=== PATIENT | female | born 1945 | race Caucasian/White ===

== ENCOUNTER → 2018-06-30 10:41 | Outpatient (CLI) | payer MEDICARE, SELFPAY ==
--- NOTE | 2018-06-30 | DI.MRI.S_ITS ---
PROCEDURE: MR HEAD/BRAIN WO/W CON INDICATIONS: ROUTINE SCREENING MAMMOGRAM,DIZZINESS,DIPLOPIA,DYS TECHNIQUE: Noncontrast axial T1 spin echo, axial T2 fast spin echo, sagittal and axial FLAIR, coronal T2 fast spin echo, axial gradient echo, axial diffusion and ADC through the brain. After the administration of contrast, axial and coronal T1 spin echo with fat saturation through the brain. COMPARISON: [facility], CT, HEAD WITHOUT CONTRAST, 09/12/2014, 19:01. FINDINGS: Image quality: Diagnostic, with note made of motion artifact. CSF spaces: Basal cisterns are patent. No extra-axial fluid collections. Ventricles are normal in size and shape. Brain: No midline shift. No intracranial bleeds or masses. No abnormal intracranial enhancement. There is cerebral volume loss for age. There is periventricular white matter chronic small vessel ischemic change. The brainstem appears normal. Diffusion-weighted images demonstrate no acute ischemic insults. No chronic ischemic insults. Normal intravascular flow voids are present. Skull and face: Calvarial marrow is normal in signal. Orbits appear normal. Sinuses: Sinuses and mastoids appear clear. IMPRESSION: Normal brain MRI for age, without an imaging explanation of the patient's presenting history. No masses or abnormal enhancement can be seen. Note is made of age-appropriate brain parenchymal volume loss and chronic small vessel ischemic changes. No findings of acute or subacute infarction can be seen. Dictated by: Miguel Angel Owens M.D. on 06/30/2018 at 11:30 Approved by: Miguel Angel Owens M.D. on 06/30/2018 at 11:31
--- NOTE | 2018-06-30 | DI.US.S_ITS ---
PROCEDURE: US CAROTID DOPPLER BI INDICATIONS: ROUTINE SCREENING MAMMOGRAM,DIZZINESS,DIPLOPIA,DYS TECHNIQUE: Color and pulse Doppler interrogation was performed of both carotid systems, with image documentation and velocity measurements. COMPARISON: None. FINDINGS: Stenosis calculations are based on SRU (Society of Radiologists in Ultrasound) criteria. Right side: Brachial blood pressure: 130/70 mm Hg. Common carotid artery peak systolic velocity: 41 cm/sec. Internal carotid artery peak systolic velocity: 564 cm/sec. Internal carotid artery end diastolic velocity: 245 cm/sec. External carotid artery peak systolic velocity: 109 cm/sec. ICA/CCA peak systolic ratio: 13.6 . Roe scale imaging description: Moderate to severe plaque at the bifurcation. Percent internal carotid artery stenosis: 70% to near occlusion. Vertebral artery: Flow direction is antegrade. Left side: Brachial blood pressure: 132/73 mm Hg. Common carotid artery peak systolic velocity: 94 cm/sec. Internal carotid artery peak systolic velocity: 110 cm/sec. Internal carotid artery end diastolic velocity: 47 cm/sec. External carotid artery peak systolic velocity: 88 cm/sec. ICA/CCA peak systolic ratio: 1.2 . Roe scale imaging description: Mild plaque at the bifurcation Percent internal carotid artery stenosis: Less than 50%. Vertebral artery: Flow direction is antegrade. IMPRESSION: 1. 70% to near occlusion of the right internal carotid artery. 2. Less than 50% stenosis of the left internal carotid artery. Dictated by: Kitty Sosa M.D. on 06/30/2018 at 11:43 Approved by: Kitty Sosa M.D. on 06/30/2018 at 11:59
--- NOTE | 2018-06-30 | DI.MG.S_ITS ---
BILATERAL DIGITAL SCREENING MAMMOGRAM 3D/2D WITH CAD: 06/30/2018 CLINICAL: Routine screening. Comparison is made to exam dated: 06/22/2013 [facility]. The tissue of both breasts is heterogeneously dense. This may lower the sensitivity of mammography. Current study was also evaluated with a Computer Aided Detection (CAD) system. No significant masses, calcifications, or other findings are seen in either breast. There has been no significant interval change. IMPRESSION: NEGATIVE There is no mammographic evidence of malignancy. A 1 year screening mammogram is recommended. This exam was interpreted at Station ID: [id number]. NOTE: For mammograms, a report in lay terms will be sent to the patient. Approximately 15% of breast malignancies will not be visualized mammographically. In the management of a palpable breast mass, a negative mammogram must not discourage biopsy of a clinically suspicious lesion. Electronically Signed By: Anabela massey/jose:06/30/2018 12:42:11 letter sent: Normal Exam ACR BI-RADS Category 1: Negative [id number]
== END ==
PROVIDERS: Visit Provider Family Medicine
DX: Z12.31 Encounter for screening mammogram for malignant neoplasm of breast (principal); R42 Dizziness and giddiness; H53.2 Diplopia; H93.299 Other abnormal auditory perceptions, unspecified ear
CPT/HCPCS: 70553; 77063; 77067; 93880; A9579

== ENCOUNTER → 2020-04-16 14:49 | Outpatient (CLI) | payer MEDICARE, MEDICAID, SELFPAY ==
--- NOTE | 2020-04-16 | DI.MG.S_ITS ---
BILATERAL DIGITAL SCREENING MAMMOGRAM 3D/2D WITH CAD: 04/16/2020 CLINICAL: Routine screening. Comparison is made to exams dated: 06/30/2018 mammogram and 06/22/2013 mammogram - [facility]. The tissue of both breasts is heterogeneously dense. This may lower the sensitivity of mammography. Current study was also evaluated with a Computer Aided Detection (CAD) system. No significant masses, calcifications, or other findings are seen in either breast. There has been no significant interval change. IMPRESSION: NEGATIVE There is no mammographic evidence of malignancy. A 1 year screening mammogram is recommended. This exam was interpreted at Station ID: [id number]. NOTE: For mammograms, a report in lay terms will be sent to the patient. Approximately 15% of breast malignancies will not be visualized mammographically. In the management of a palpable breast mass, a negative mammogram must not discourage biopsy of a clinically suspicious lesion. Electronically Signed By: Primitivo hernandez/jose:04/16/2020 16:28:30 letter sent: Normal Exam ACR BI-RADS Category 1: Negative [id number]
== END ==
PROVIDERS: Family Provider Nurse Practitioner; PCP Family Medicine; Referring Provider Family Medicine; Visit Provider Family Medicine
DX: Z12.31 Encounter for screening mammogram for malignant neoplasm of breast (principal); M85.851 Other specified disorders of bone density and structure, right thigh; Z78.0 Asymptomatic menopausal state; F17.200 Nicotine dependence, unspecified, uncomplicated; Z82.62 Family history of osteoporosis
CPT/HCPCS: 77063; 77067; 77080

== ENCOUNTER → 2021-06-23 12:11 | Outpatient (CLI) | payer MEDICARE, MEDICAID, SELFPAY ==
--- NOTE | 2021-06-23 | DI.RAD.S_ITS ---
PROCEDURE: XR DEXA AXIAL SKELETON INDICATIONS: Age-related osteoporosis without current pathological fractu COMPARISON: [facility], CR, XR DEXA AXIAL SKELETON, 04/16/2020, 15:13. FINDINGS: This blank DEXA report has been sent in error by the PACS system. The correct and complete report will be forthcoming in 1-2 days. Thank you for your patience and understanding. Dictated by: Temitope Alaniz MD, PhD on 06/23/2021 at 16:41 Approved by: Temitope Alaniz MD, PhD on 06/23/2021 at 16:41
== END ==
PROVIDERS: Family Provider Nurse Practitioner; PCP Family Medicine; Referring Provider Family Medicine; Visit Provider Family Medicine
DX: M85.851 Other specified disorders of bone density and structure, right thigh (principal); Z78.0 Asymptomatic menopausal state; Z72.0 Tobacco use; Z82.62 Family history of osteoporosis
CPT/HCPCS: 77080

== ENCOUNTER 2022-02-16 14:22 | Observation (INO) | payer MEDICARE, MEDICAID, SELFPAY ==
[2022-02-16] VITALS (20 sets, daily range): BP systolic 129–203; BP diastolic 56–109; PULSE 56–77; RESP 17–19; TEMP 36.3–36.8; O2SAT 95–99; BMI 20.7
--- NOTE | 2022-02-16 14:44 | DI.CT.S_ITS ---
PROCEDURE: CT HEAD/BRAIN WO CON INDICATIONS: tia TECHNIQUE: Noncontrast 4.5 mm thick angled axial sections acquired from the foramen magnum to the vertex, with coronal and sagittal reformats. For radiation dose reduction, the following was used: automated exposure control, adjustment of mA and/or kV according to patient size. COMPARISON: [facility], CT, HEAD WITHOUT CONTRAST, 09/12/2014, 19:01. FINDINGS: Image quality: Excellent. CSF spaces: Basal cisterns are patent. No extra-axial fluid collections. The ventricles are symmetric in size and shape. Brain: No intracranial bleeds or masses. There is mild cerebral volume loss for age, with resultant ventricular and sulcal prominence. There are mild periventricular and deep white matter chronic small vessel ischemic changes. There is intracranial internal carotid artery atherosclerosis. Skull and face: Calvarium and visualized facial bones appear intact, without suspicious lesions. Sinuses: Visualized sinuses and mastoids are clear. IMPRESSION: 1. No acute intracranial abnormalities. Dictated by: Vincent Conte M.D. on 02/16/2022 at 15:31 Approved by: Vincent Conte M.D. on 02/16/2022 at 15:33
--- NOTE | 2022-02-16 14:44 | DI.RAD.S_ITS ---
PROCEDURE: XR CHEST 1V INDICATIONS: Possible stroke TECHNIQUE: One view of the chest was acquired. COMPARISON: [facility], , CHEST 2 VIEW, 09/12/2014, 19:02. FINDINGS: Surgical changes and devices: None. Lungs and pleura: Lungs are clear. No pleural effusions or pneumothorax. Mediastinum: Mediastinal contours appear normal. Heart size is normal. Bones and chest wall: No suspicious bony lesions. Overlying soft tissues appear unremarkable. IMPRESSION: No acute cardiopulmonary disease. Dictated by: Vincent Conte M.D. on 02/16/2022 at 15:59 Approved by: Vincent Conte M.D. on 02/16/2022 at 16:06
--- NOTE | 2022-02-16 15:09 | PC.NURSE ---
Patient reports that back in June had sudden onset bilateral shoulder pain, L > R and was referred to PT. According to patient, physical therapist was suspicious of sudden onset tendinopathy. 5 weeks ago while laying on the couch, right eye went black in the top 2/3 of eye for 30secs to 2 minutes and resolved on its own. This occured 4 other times with same eye but turned parish instead of black and occurred at both rest and activity. Patient went to eye doctor today and patient stated that she was told this isn't an eye problem and to come to ED for evaluation. Patient is not currently having eye issue.
[2022-02-16 15:19] LABS: INR 0.9 (0.9-1.3)
[2022-02-16 15:22] LABS: PTT Partial Thromboplastin Tim 35 SECONDS (26.4-36.2)
[2022-02-16 15:24] LABS: Alanine Aminotransferase 24 IU/L (<35); Albumin 4.1 g/dL (3.5-5.0); Albumin Globulin Ratio 1.2 (1.0-2.8); Alkaline Phosphatase 66 U/L (38-126); Aspartate Aminotransferase 36 IU/L (14-36); BUN Creatinine Ratio 17.4 (6-22); Bilirubin Total 0.2 mg/dL (0.2-1.3); Blood Urea Nitrogen 12 mg/dL (7-17); Calcium 8.8 mg/dL (8.4-10.2); Carbon Dioxide 28 mmol/L (22-32); Chloride 103 mmol/L (98-107); Creatine Kinase 36 U/L (30-135); Estimated Glomerular Filt Rate > 60 mL/min (>60); Globulin 3.3 g/dL (1.7-4.1); Glucose 95 mg/dL (80-110); HEMOLYSIS 28 (0-50); Magnesium 2.1 mg/dL (1.6-2.3); Potassium 4.4 mmol/L (3.4-5.1); Sodium 138 mmol/L (137-145); Total Protein 7.4 g/dL (6.3-8.2)
[2022-02-16 15:35] LABS: Troponin I < 0.012 ng/mL (0.01-0.034)
[2022-02-16 15:41] LABS: Add Manual Diff / Slide Review SLIDE REVIEW; Basophils Absolute Auto 100 /uL (0-100); Basophils Percent Auto 2.3 % (0-2); Eosinophils Absolute Auto 100 /uL (0-450); Eosinophils Percent Auto 2.3 % (2-4); Hematocrit 25.2 % (36-46); Lymphocytes Absolute Auto 2200 /uL (1100-4500); Mean Corpuscular HGB Conc 55.4 % (30-36); Mean Corpuscular Hemoglobin 68.4 PG (26-34); Mean Corpuscular Volume 123.5 fL (80-100); Monocytes Absolute Auto 400 /uL (0-900); Monocytes Percent Auto 6.1 % (3-14); Neutrophils Absolute Auto 3600 /uL (1500-7000); Neutrophils Percent Auto 55.3 % (50-75); Platelet Count 358 X10^3/uL (150-400); Red Blood Cell Count 2.04 X10^6/uL (4.0-5.2); Red Cell Distribution Width 13.5 % (11.6-14.8); White Blood Cell Count 6.5 X10^3/uL (4.5-11.0)
[2022-02-16 16:20] LABS: Macrocytosis 2+
--- NOTE | 2022-02-16 18:19 | ED_ITS ---
HPI - Eye Problem General Chief complaint: Eye Problems Stated complaint: RT Eye, Black Vision, Blurry Vision, RO Mini Strok Time Seen by Provider: 02/16/22 17:16 Source: patient and family Mode of arrival: Ambulatory History of Present Illness HPI Narrative: 77-year-old female daily smoker with history of hypertension presents for evalua tion of visual disturbances. She states that over the past 5 weeks she has had at least 5 episodes of vision change in her right eye which historically is a loss of vision in the upper 2/3 of her right eye in the absence of pain or injury. She states that maybe she gets dizzy on occasion but denies other neurologic symptoms such as trouble with speech, ambulation or focal numbness, tingling or weakness. 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 She denies fever chills and has no runny nose, sore throat or cough. She has no chest pain or shortness of breath denies nausea, vomiting or diarrhea. She has no change in bowel or urinary habits. Related Data Home Medications Medication Instructions Recorded Confirmed [bee pollen] 1 dose PO DAILY #0 03/08/17 02/16/22 vitamin E 400 unit capsule 400 unit PO QDAY #0 04/12/17 02/16/22 Co Q-10 PO DAILY 02/16/22 Vitamin D3 1 cap PO DAILY 02/16/22 02/16/22 lorazepam 0.5 mg tablet (Ativan) 0.5 mg PO Q6HP PRN 02/16/22 02/16/22 multivitamin with minerals-folic 1 tab PO DAILY 02/16/22 02/16/22 acid 80 mcg chewable tablet Previous Rx's Medication Instructions Recorded cyanocobalamin (vitamin B-12) 1,000 mcg IM SEE INSTRUCTIONS #10 03/08/17 1,000 mcg/mL injection solution ea lisinopril 5 mg tablet 5 mg PO BID #180 tab 04/26/17 simvastatin 10 mg tablet 10 mg PO HS #90 tab 04/26/17 Allergies Allergy/AdvReac Type Severity Reaction Status Date / Time citalopram [CITALOPRAM] Allergy Intermediate HEADACHES Verified 02/16/22 14:48 Sulfa (Sulfonamide Allergy Intermediate A BABY Verified 02/16/22 14:48 Antibiotics) [SULFA (SULFONAMIDE ANTIBIOTICS)] varenicline [VARENICLINE] Allergy Intermediate NAUSEA, Verified 02/16/22 14:48 DIZZINESS YELLOW JACKET VENOM Allergy Severe Difficulty Uncoded 02/16/22 14:48 Breathing OCEAN SPRAY Allergy Intermediate HEADACHES, Uncoded 02/16/22 14:48 COUGHING, SNEEZING, MUSCLE ACHES STRAWBERRIES Allergy Mild RASH, Uncoded 02/16/22 14:48 NAUSEA, DIZZINESS, COUGHING MILK CHOCOLATE AdvReac Mild COUGHING, Uncoded 02/16/22 14:48 SNEEZING Review of Systems Review of Systems Narrative: GENERAL: Denies chills, fatigue, malaise, fever, sweats. HEENT: Denies sinus pain, ear pain, sore throat, difficulty swallowing, dizziness. RESPIRATORY: Denies dyspnea, cough, wheezing, hemoptysis, sputum. CARDIOVASCULAR: Denies chest pain, palpitations, orthopnea, edema, GASTROINTESTINAL: Denies nausea, vomiting, abdominal pain, diarrhea, constipation, melena. : Denies dysuria, frequency, incontinence, hematuria, urinary retention. MUSCULOSKELETAL: denies weakness, joint pain, or bony pain SKIN: Denies rash, skin lesions, or other NEUROLOGIC: See HPI PSYCHIATRIC: No concerning psychosocial issues. 12 point review of systems is negative except for those stated above Patient History Surgical History History of carpal tunnel repair History of tonsillectomy Status post tubal ligation Family History Brother Age: 69 Heart attack Hypertension High cholesterol Child Age: 54 Hypertension High cholesterol Child Age: 51 Hypertension High cholesterol Child Age: 50 Hypertension Hypothyroid Child Age: 48 Hypertension Father Cancer Hypertension Mother Heart disease Mental health problem Stroke Hypothyroid Grandfather Heart disease Hypertension High cholesterol Grandmother Heart disease Sister Age: 79 Heart disease Hypertension High cholesterol Sister Hypertension High cholesterol Social History household members: none Smoking Status: Current every day smoker alcohol intake: current Smoking Status: Current every day smoker alcohol intake frequency: 0-2 drinks per day Substance Use Type: marijuana Exam Narrative Exam Narrative: GENERAL: [77] year old patient appears stated age. Well-developed patient, in mild distress. HEAD: Atraumatic. Normocephalic. EYES: Pupils equal round and reactive. Extraocular motions intact. No scleral icterus. No injection or drainage. ENT: Nose without bleeding, purulent drainage. Throat without erythema, tonsillar hypertrophy or exudate. Airway patent. NECK: Trachea midline. Non tender CARDIOVASCULAR: Regular rate and rhythm without murmurs, gallops, or rubs. RESPIRATORY: Clear to auscultation. Breath sounds equal bilaterally. No wheezes, rales, or rhonchi. GASTROINTESTINAL: Abdomen soft, non-tender, nondistended. EXTREMITIES: No edema or joint tenderness. BACK: Nontender without deformity or crepitance. No flank tenderness. NEURO: AOx3. SKIN: No rash or erythema of visible areas NIH Stroke Scale 1a. LOC: Patient is alert and keenly responsive (0) 1b. LOC Questions: Patient answers both LOC questions accurately (0) 1c. LOC Commands: Patient performs both tasks correctly (0) 2. Best Gaze: Normal (0) 3. Visual: No visual loss (0) 4. Facial palsy: Normal symmetrical movements (0) 5. Motor arm: No drift (0) 6. Motor leg: No drift (0) 7. Limb ataxia: Absent (0) 8. Sensory: Normal (0) 9. Best language: No aphasia; normal (0) 10. Dysarthria: Normal (0) 11. Extinction and inattention: No abnormality (0) NIHSS: 0 Initial Vital Signs Initial Vital Signs: Vital Signs Pulse Rate 66 02/16/22 14:39 Respiratory Rate 18 02/16/22 14:39 Blood Pressure 190/81 H 02/16/22 14:39 Pulse Oximetry 99 02/16/22 14:39 Course Course Course Narrative: #187: Stroke & Stroke Rehabilitation: Thrombolytic Therapy [] The patient, who arrived at the hospital within 2 hours of time last known well, was diagnosed with subacute or acute ischemic stroke. IV t-PA was initiated within 3 hours of time last known well. [SATISFIES MIPS PERFORMANCE] [] The patient was diagnosed with subacute or acute ischemic stroke. IV t-PA was not initiated within 3 hours of last known well due to [select]: [MIPS PERFORMANCE EXCEPTION/EXCLUSION] [x] Patient arrived more than 2 hours after last known well time, or the time last known well is unknown [] Patient has a medical contra-indication or reason for not administering [] (ex. neurologist does not believe t-PA is appropriate, active internal bleeding, serious head trauma, acute current or history of intracranial hemorrhage, uncontrollable hypertension, seizure at onset of stroke, CVA in last 3 months, Intracranial or intraspinal surgery in last 3 months, bleeding disorder, thrombocytopenia < 100,000, early radiographic ischemic changes on head CT, INR > 1.7, intracranial neoplasm, AVM, or aneurysm, patient in stroke trial, patient admitted for elective carotid intervention) []Patient or family declined IV t-PA [] The patient, who arrived at the hospital within 2 hours of time last known well, was diagnosed with subacute or acute ischemic stroke. IV t-PA was not initiated within 3 hours of time last known well. [DOES NOT SATISFY MIPS PERFORMANCE] Orders Ordered: ED Orders 02/16/22 18:35 CT angio head and neck Stat 02/16/22 18:43 COVID19 -Nasal RAPID/Pre-Proc Stat Apixaban (Apixaban 5 Mg Tablet) 5 mg PO BID TIFFANI Aspirin (Aspirin Ec 81 Mg Tablet) 81 mg PO DAILY TIFFANI Atorvastatin Calcium (Atorvastatin 20 Mg Tablet) 40 mg PO BEDTIME TIFFANI Clopidogrel Bisulfate (Clopidogrel 75 Mg Tablet) 75 mg PO DAILY TIFFANI Lisinopril (Lisinopril 5 Mg Tablet) 5 mg PO BID TIFFANI Naloxone HCl (Naloxone 0.4 Mg/Ml Vial) 0.2 mg IV Q2MIN PRN PRN Reason: Opiate Reversal Ondansetron HCl (Ondansetron 4 Mg/2 Ml Inj) 4 mg IV Q6HR PRN PRN Reason: Nausea And Vomiting Discontinued Medications Aspirin (Aspirin 81 Mg Chew Tab) 324 mg PO NOW ONE Stop: 02/16/22 18:37 Last Admin: 02/16/22 18:41 Dose: 324 mg Documented by: HERNAN Atorvastatin Calcium (Atorvastatin 20 Mg Tablet) 10 mg PO BEDTIME TIFFANI Non-Formulary Medication (Simvastatin) 10 mg PO HS REPLACED BY [facility] Vital Signs Vital signs: Vital Signs - 8 hr 02/16/22 16:30 02/16/22 16:31 02/16/22 17:00 Pulse Rate 68 61 61 Blood Pressure 141/63 H 152/69 H Pulse Oximetry 98 98 98 02/16/22 17:30 02/16/22 18:00 02/16/22 18:30 Pulse Rate 62 65 63 Blood Pressure 174/72 H 153/65 H 203/81 H Pulse Oximetry 97 98 95 02/16/22 19:49 02/16/22 20:00 02/16/22 20:30 Pulse Rate 58 L 60 57 L Blood Pressure Pulse Oximetry 99 96 96 02/16/22 21:00 02/16/22 21:30 02/16/22 22:00 Pulse Rate 56 L 59 L 58 L Blood Pressure Pulse Oximetry 98 97 96 MDM - Eye Problem Lab Data Result diagrams: 02/16/22 15:03 02/16/22 15:03 Labs: Lab Results 02/16/22 02/16/22 02/16/22 Range/Units 15:03 15:03 15:03 WBC 6.5 (4.5-11.0) X10^3/uL RBC 2.04 L (4.0-5.2) X10^6/uL Hgb 14.0 (12.0-16.0) g/dL Hct 25.2 L (36-46) % MCV 123.5 H (80-100) fL MCH 68.4 H (26-34) PG MCHC 55.4 H (30-36) % RDW 13.5 (11.6-14.8) % Plt Count 358 (150-400) X10^3/uL Neut % (Auto) 55.3 (50-75) % Lymph % (Auto) 34.0 (25-40) % [place] % (Auto) 6.1 (3-14) % Eos % (Auto) 2.3 (2-4) % Baso % (Auto) 2.3 H (0-2) % Neut # (Auto) 3600 (8850-2267) /uL Lymph # (Auto) 2200 (9670-4379) /uL [place] # (Auto) 400 (0-900) /uL Eos # (Auto) 100 (0-450) /uL Baso # (Auto) 100 (0-100) /uL RBC Morphology See below Macrocytosis 2+ H PT 10.0 L (10.1-12.7) SECONDS INR 0.9 (0.9-1.3) APTT 35 (26.4-36.2) SECONDS Sodium 138 (137-145) mmol/L Potassium 4.4 (3.4-5.1) mmol/L Chloride 103 (98-107) mmol/L Carbon Dioxide 28 (22-32) mmol/L BUN 12 (7-17) mg/dL Creatinine 0.69 (0.52-1.04) mg/dL Estimated GFR > 60 (>60) mL/min BUN/Creatinine Ratio 17.4 (6-22) Glucose 95 (80-110) mg/dL Calcium 8.8 (8.4-10.2) mg/dL Magnesium 2.1 (1.6-2.3) mg/dL Total Bilirubin 0.2 (0.2-1.3) mg/dL AST 36 (14-36) IU/L ALT 24 (<35) IU/L Alkaline Phosphatase 66 (38-126) U/L Total Creatine Kinase 36 (30-135) U/L CK-MB (CK-2) TNP CK-MB (CK-2) Rel Index TNP Troponin I < 0.012 (0.01-0.034) ng/mL Total Protein 7.4 (6.3-8.2) g/dL Albumin 4.1 (3.5-5.0) g/dL Globulin 3.3 (1.7-4.1) g/dL Albumin/Globulin Ratio 1.2 (1.0-2.8) SARS-CoV-2 (PCR) (Negative) 02/16/22 Range/Units 18:43 WBC (4.5-11.0) X10^3/uL RBC (4.0-5.2) X10^6/uL Hgb (12.0-16.0) g/dL Hct (36-46) % MCV (80-100) fL MCH (26-34) PG MCHC (30-36) % RDW (11.6-14.8) % Plt Count (150-400) X10^3/uL Neut % (Auto) (50-75) % Lymph % (Auto) (25-40) % [place] % (Auto) (3-14) % Eos % (Auto) (2-4) % Baso % (Auto) (0-2) % Neut # (Auto) (4154-4244) /uL Lymph # (Auto) (8884-1936) /uL [place] # (Auto) (0-900) /uL Eos # (Auto) (0-450) /uL Baso # (Auto) (0-100) /uL RBC Morphology Macrocytosis PT (10.1-12.7) SECONDS INR (0.9-1.3) APTT (26.4-36.2) SECONDS Sodium (137-145) mmol/L Potassium (3.4-5.1) mmol/L Chloride (98-107) mmol/L Carbon Dioxide (22-32) mmol/L BUN (7-17) mg/dL Creatinine (0.52-1.04) mg/dL Estimated GFR (>60) mL/min BUN/Creatinine Ratio (6-22) Glucose (80-110) mg/dL Calcium (8.4-10.2) mg/dL Magnesium (1.6-2.3) mg/dL Total Bilirubin (0.2-1.3) mg/dL AST (14-36) IU/L ALT (<35) IU/L Alkaline Phosphatase (38-126) U/L Total Creatine Kinase (30-135) U/L CK-MB (CK-2) CK-MB (CK-2) Rel Index Troponin I (0.01-0.034) ng/mL Total Protein (6.3-8.2) g/dL Albumin (3.5-5.0) g/dL Globulin (1.7-4.1) g/dL Albumin/Globulin Ratio (1.0-2.8) SARS-CoV-2 (PCR) Negative (Negative) Imaging Data CT scan - head: Radiologist's Impression: Close Head CT (Signed) Lola Conte - 02/16/22 Chest X-Ray (Signed) Lola Conte - 02/16/22 Bone Densitometry (Signed) Temitope Alaniz - 06/23/21 Mammogram Screening (Signed) Primitivo Espinoza - 04/16/20 Bone Densitometry 04/16/20 Mammogram Screening (Signed) Anabela Rodriguez - 06/30/18 Carotid Doppler Study (Signed) Kitty Sosa - 06/30/18 Brain MRI (Signed) Miguel Angel Owens - 06/30/18 Launch?Image [address] [address] [address] Scan Report Signed Patient: Carina Ryan V MR#: [id number] : 1945 Acct:[id number] Age/Sex: 77 / F Date of Service: 02/16/22 Loc: ED Accession Number: [id number] ?? Procedure: CT head/brain wo con Ordering Provider: Catrina Olmstead D.O. PROCEDURE:? CT HEAD/BRAIN WO CON ? INDICATIONS:? tia ? TECHNIQUE:? Noncontrast 4.5 mm thick angled axial sections acquired from the foramen magnum to the vertex, with coronal and sagittal reformats.? For radiation dose reduction, the following was used:? automated exposure control, adjustment of mA and/or kV according to patient size.? ? COMPARISON:? [facility], CT, HEAD WITHOUT CONTRAST, 09/12/2014, 19:01. ? FINDINGS:? Image quality:? Excellent.? ? CSF spaces:? Basal cisterns are patent.? No extra-axial fluid collections.? The ventricles are symmetric in size and shape.? ? Brain:? No intracranial bleeds or masses.? There is mild cerebral volume loss for age, with resultant ventricular and sulcal prominence.? There are mild periventricular and deep white matter chronic small vessel ischemic changes.? There is intracranial internal carotid artery atherosclerosis.? ? Skull and face:? Calvarium and visualized facial bones appear intact, without suspicious lesions.? ? Sinuses:? Visualized sinuses and mastoids are clear.? ? IMPRESSION:? ? 1. No acute intracranial abnormalities. ? ? ? Dictated by: Vincent Conte M.D. on 02/16/2022 at 15:31 ? ? Approved by: Vincent Conte M.D. on 02/16/2022 at 15:33? Chest x-ray: Radiologist's Impression: [address] [address] XRay Report Signed Patient: Carina Ryan V MR#: [id number] : 1945 Acct:[id number] Age/Sex: 77 / F Date of Service: 02/16/22 Loc: ED Accession Number: [id number] ?? Procedure: XR chest 1V Ordering Provider: Catrina Olmstead D.O. PROCEDURE:? XR CHEST 1V ? INDICATIONS:? Possible stroke ? TECHNIQUE:? One view of the chest was acquired.? ? COMPARISON:? [facility], , CHEST 2 VIEW, 09/12/2014, 19:02. ? FINDINGS:? ? Surgical changes and devices:? None.? ? Lungs and pleura:? Lungs are clear.? No pleural effusions or pneumothorax.? ? Mediastinum:? Mediastinal contours appear normal.? Heart size is normal.? ? Bones and chest wall:? No suspicious bony lesions.? Overlying soft tissues appear unremarkable.? ? IMPRESSION:? No acute cardiopulmonary disease. ? ? Dictated by: Vincent Conte M.D. on 02/16/2022 at 15:59 ? ? Approved by: Vincent Conte M.D. on 02/16/2022 at 16:06 ? CTA - brain/neck: Radiologist's Impression: Launch?[place] [address] CT Scan Report Signed Patient: Carina Ryan V MR#: [id number] : 1945 Acct:[id number] Age/Sex: 77 / F Date of Service: 02/16/22 Loc: ED Accession Number: [id number] ?? Procedure: CT angio head and neck Ordering Provider: Alf Ma D.O. PROCEDURE:? CT ANGIO HEAD AND NECK ? INDICATIONS:? stroke symptoms, outside anywindow. Largely vision, none now ? TECHNIQUE:? After the administration of intravenous contrast, 1 mm thick sections acquired from the aortic arch through the [employer] [place].? Post-contrast 4.5 mm thick sections then re-acquired from the foramen magnum to the vertex.? 3-dimensional spdxixd-tntgoefxj-hngnrlqugw (MIP) and/or volume rendering reformats were acquired of the central intracranial vasculature and neck separately. For radiation dose reduction, the following was used:? automated exposure control, adjustment of mA and/or kV according to patient size.? ? COMPARISON:? None. ? FINDINGS:? Image quality:? Excellent.? ? ? HEAD CT ANGIOGRAPHY:? Anterior circulation:? Intracranial internal carotid arteries are normal in size and flow.? The flow within the paired anterior cerebral arteries is normal and symmetric.? The flow within the middle cerebral arteries is normal and symmetric.? The anterior communicating artery is seen.? No aneurysms are seen.? ? Posterior circulation:? Visualized portions of the vertebral arteries demonstrate normal caliber, and join to form a normal appearing basilar artery.? Flow within the posterior cerebral arteries is normal and symmetric.? No aneurysms are seen.? ? NECK CT ANGIOGRAPHY:? Carotid system:? The great vessels demonstrate a conventional anatomy as they arise from the aortic arch.? The origins of the common carotid arteries appear patent.? The common carotid arteries demonstrate normal caliber and courses.? The bifurcation regions are both widely patent.? The internal carotid arteries demonstrate normal calibers and courses.? ? Posterior circulation:? The origins of the vertebral arteries both appear widely patent.? The more superior extracranial portions of both vertebral arteries also demonstrate normal courses and calibers.? They join to form a normal appearing basilar artery.? ? Soft tissues:? Visualized neck soft tissues demonstrate no suspicious abnormalities.? ? Bones:? No suspicious bony lesions.? Visualized cervical spine appears normally aligned.? IMPRESSION:? No hemodynamically significant stenosis of the major intracranial or extracranial arterial circulation. ? Any quantitative measurements of stenosis were performed using NASCET criteria.? ? ? Dictated by: Jorge Finley M.D. on 02/16/2022 at 20:12 ? ? Approved by: Jorge Finley M.D. on 02/16/2022 at 20:13 ? Discharge Plan Departure Patient Disposition: Admitted as Observation Clinical Impression: Brain TIA Admit Date/Time: 02/16/22 22:39 Admit Provider: Fina Hale
--- NOTE | 2022-02-16 18:35 | DI.CT.S_ITS ---
PROCEDURE: CT ANGIO HEAD AND NECK INDICATIONS: stroke symptoms, outside anywindow. Largely vision, none now TECHNIQUE: After the administration of intravenous contrast, 1 mm thick sections acquired from the aortic arch through the [place]. Post-contrast 4.5 mm thick sections then re-acquired from the foramen magnum to the vertex. 3-dimensional wlbyclw-puwppsavt-mgxqeuczog (MIP) and/or volume rendering reformats were acquired of the central intracranial vasculature and neck separately. For radiation dose reduction, the following was used: automated exposure control, adjustment of mA and/or kV according to patient size. COMPARISON: None. FINDINGS: Image quality: Excellent. HEAD CT ANGIOGRAPHY: Anterior circulation: Intracranial internal carotid arteries are normal in size and flow. The flow within the paired anterior cerebral arteries is normal and symmetric. The flow within the middle cerebral arteries is normal and symmetric. The anterior communicating artery is seen. No aneurysms are seen. Posterior circulation: Visualized portions of the vertebral arteries demonstrate normal caliber, and join to form a normal appearing basilar artery. Flow within the posterior cerebral arteries is normal and symmetric. No aneurysms are seen. NECK CT ANGIOGRAPHY: Carotid system: The great vessels demonstrate a conventional anatomy as they arise from the aortic arch. The origins of the common carotid arteries appear patent. The common carotid arteries demonstrate normal caliber and courses. The bifurcation regions are both widely patent. The internal carotid arteries demonstrate normal calibers and courses. Posterior circulation: The origins of the vertebral arteries both appear widely patent. The more superior extracranial portions of both vertebral arteries also demonstrate normal courses and calibers. They join to form a normal appearing basilar artery. Soft tissues: Visualized neck soft tissues demonstrate no suspicious abnormalities. Bones: No suspicious bony lesions. Visualized cervical spine appears normally aligned. IMPRESSION: No hemodynamically significant stenosis of the major intracranial or extracranial arterial circulation. Any quantitative measurements of stenosis were performed using NASCET criteria. Dictated by: Jorge Finley M.D. on 02/16/2022 at 20:12 Approved by: Jorge Finley M.D. on 02/16/2022 at 20:13
[2022-02-16] MEDS: ASPIRIN 81 MG CHEW TAB 324 MG PO (18:41)
[2022-02-16 19:05] LABS: COVID19 -Nasal RAPID Negative (Negative)
--- NOTE | 2022-02-17 00:01 | DI.ECHO.S_ITS ---
[facility]+ [facility] +---------+ : : [address] [place] [address] : : : : [id number] : : : : Phone: [phone]+ Echocardiogram Report + + :Name: NAVYA POLLOCK V Study Date: 02/17/2022 Height: 61 in : :[facility] ReadingLocation: Weight: 105 lb : : Gender: Female BSA: 1.4 m2 : :: 1945 Age: 77 yrs BP: 155/70 mmHg: :Reason For Study: TIA : :Ordering Physician: LINDA QUEVEDO : :[employer] Performed By: Leonila Treadwell : :Referring: LINDA QUEVEDO [employer]EL[employer] : + + Interpretation Summary 1) Normal left ventricular thickness, size, and systolic function (EF 60-65%). 2) Normal right ventricular size and function. 3) There is mild aortic regurgitation. 4) Injection of contrast documented no interatrial shunt. 5) There is mild luminal irregularity and echogenicity in the aortic arch and abdominal aorta, suggestive of aortic atherosclerotic disease. 6) No prior Echo available for comparison. Procedure: A two-dimensional transthoracic echocardiogram with color flow and Doppler was performed. The study quality was technically adequate. A saline contrast injection was performed to assess for cardiac shunting. There is no prior echocardiogram noted for this patient. The patient was in sinus rhythm with heart rates between 61-68 bpm during the exam. Left Ventricle: The left ventricle is normal in size and wall thickness. The ejection fraction is estimated to be 60-65%. There is a borderline dyssynchronous contraction pattern, consistent with a conduction abnormality. Diastolic parameters suggest a relaxation abnormality of the left ventricle, consistent with probable normal filling pressures. Right Ventricle: The right ventricle is normal in size and function. Atria: The left atrial size is normal. Right atrial size is normal. There is no Doppler evidence for an interatrial shunt. Injection of contrast documented no interatrial shunt. Mitral Valve: There is mild mitral annular calcification. The mitral valve leaflets appear borderline thickened, but open well. There is mild mitral regurgitation. Aortic Valve: The aortic valve is trileaflet. The aortic valve is mildly calcified. There is no aortic valve stenosis. There is mild aortic regurgitation. Tricuspid Valve: The tricuspid valve is normal in structure and function. There is mild tricuspid regurgitation. The right ventricular systolic pressure is estimated to be at least 28 mmHg based on an estimated right atrial pressure of 3 mm Hg. Pulmonic Valve: The pulmonic valve leaflets are thin and pliable; valve motion is normal. There is mild pulmonic regurgitation. Great Vessels: The aortic root is normal size. The ascending aorta is at the upper limits of normal in size. Mild atherosclerotic plaque(s) in the aortic arch. There is mild luminal irregularity and echogenicity in the abdominal aorta, suggestive of aortic atherosclerotic disease. The IVC is of normal diameter and collapses greater than 50% with a sniff. This suggests a low right atrial pressure of 3 mm Hg. Pericardium/ Pleura There is no pericardial effusion. There is no pleural effusion. MMode/2D Measurements & Calculations LVIDd: 3.9 cm LVOT diam: 1.9 cm LVIDs: 2.6 cm Ao root diam: 3.3 cm FS: 33.9 % asc Aorta Diam: 3.6 cm IVSd: 0.88 cm Ao Arch Diam (Prox Trans): 2.2 cm LVPWd: 0.82 cm LV elaine. diameter/BSA (cm/m^2): 2.7 LV sys. diameter/BSA (cm/m^2): 1.8 LA A2 area: 17.1 cm2 RA long axis: 4.5 cm LA A4 area: 14.9 cm2 RA area: 13.4 cm2 LA length (vol): 4.8 cm RA vol: 34.1 ml LA vol: 45.3 ml RA : 23.7 ml/m2 LA vol index: 31.5 ml/m2 IVC diam: 1.8 cm RVD1 (basal): 3.3 cm RVD2 (mid): 2.5 cm TAPSE: 2.4 cm Doppler Measurements & Calculations Ao V2 max: 155.0 cm/sec LVOT Max Enrique: 103.4 cm/sec Ao V2 mean: 102.7 cm/sec LV V1 max P.3 mmHg Ao max P.6 mmHg LV V1 VTI: 23.7 cm Ao mean P.7 mmHg HINA(I,D): 2.1 cm2 Ao V2 VTI: 31.3 cm HINA(V,D): 1.9 cm2 sev ratio: 0.76 HINA indexed to BSA (cm^2/m^2): 1.5 AI P1/2t: 505.9 msec AI dec slope: 211.7 cm/sec2 MV E max enrique: 84.0 cm/sec TR max enrique: 249.7 cm/sec MV A max enrique: 111.7 cm/sec TR max P.9 mmHg MV E/A: 0.75 PA V2 max: 95.3 cm/sec Med Peak E' Enrique: 6.8 cm/sec PA V2 mean: 63.7 cm/sec E/E' med: 12.3 PA mean P.8 mmHg Lat Peak E' Enrique: 7.2 cm/sec PA pr(Accel): 34.5 mmHg E/E' lat: 11.7 E/e' average: 12.0 MV dec time: 0.31 sec SV(LVOT): 66.3 ml Reading Physician:02:27 PM
--- NOTE | 2022-02-17 00:16 | P.HP_ITS ---
History of Present Illness History of Present Illness Date Patient Seen: 02/17/22 Time Patient Seen: 00:16 Chief complaint: Visual field cut r. eye, TIA? Narrative: Bella Ryan is a 77 y.o. female resident from [place] with hypertension, hyperlipidemia and anxiety and daily smoker presented at the request of her pull out operator Dr. Hernandez, for stroke evaluation. Patient had experienced visual field changes in her right I have over the past 5 weeks occurring in the right eye only. She has experience ?a blackness? in the upper 2/3rds of her horizontal field of vision and then the subsequent events the visual deficit was more of a parish color. She was able to get in to see her pull out operator who determined that he felt that this was not an ophthalmological problem and that she needed to be further assessed for TIA him insisted upon her presenting to the emergency department after the office visit. She denies a history of injury to her head, neck, falls, headaches, speech difficulties or difficulty swallowing, numbness tingling, changes in bladder or bowel control or changes in ambulation. She did endorse having very mild chest pain and dizziness while she was in the emergency department which have since resolved. She had a NIH score determined to be 0. She states that her regular provider did note she had a right-sided bruit that comes and goes. Chest x-ray, head CT, and head neck CTA were negative for any acute findings. Patient is afebrile, presenting blood pressure was 190/81 and is currently 170/75, heart rate is 58, respiratory rate 19, oxygen saturation of 99% on room air she weighs 48 kg with a BMI of 20. CBC is unremarkable, though noted macrocytosis, chemistries and liver enzymes are within normal limits troponin was 0.012 A1c is 5.5 and lipid panel is pending for the morning. Patient History Medical History (Updated 02/17/22 @ 02:08 by VAN Turk) Essential hypertension Generalized anxiety disorder (01/17/16) Hypertensive urgency Mixed hyperlipidemia (01/17/16) Nicotine dependence, uncomplicated (01/13/16) Surgical History History of carpal tunnel repair History of tonsillectomy Status post tubal ligation Family & Social History Family History Brother Age: 69 Heart attack Hypertension High cholesterol Child Age: 54 Hypertension High cholesterol Child Age: 51 Hypertension High cholesterol Child Age: 50 Hypertension Hypothyroid Child Age: 48 Hypertension Father Cancer Hypertension Mother Heart disease Mental health problem Stroke Hypothyroid Grandfather Heart disease Hypertension High cholesterol Grandmother Heart disease Sister Age: 79 Heart disease Hypertension High cholesterol Sister Hypertension High cholesterol Social History: household members none Prior Living Arrangements House Safety & Behavioral: Feels Safe in Current Yes Environment Been Physically Hurt or No Threatened By a Person Tobacco & Substance use: Tobacco type 5 cigarettes/day Smoking Status Current every day smoker alcohol intake current alcohol intake frequency 2-3 beers per day Substance Use Type marijuana, topical, smokes occ. Meds Home Medications and Allergies Home Medications Medication Instructions Recorded Confirmed Type [bee pollen] 1 dose PO DAILY #0 03/08/17 02/16/22 History cyanocobalamin (vitamin B-12) 1,000 mcg IM SEE INSTRUCTIONS #10 03/08/17 02/16/22 Rx 1,000 mcg/mL injection solution ea vitamin E 400 unit capsule 400 unit PO QDAY #0 04/12/17 02/16/22 History lisinopril 5 mg tablet 5 mg PO BID #180 tab 04/26/17 02/16/22 Rx simvastatin 10 mg tablet 10 mg PO HS #90 tab 04/26/17 02/16/22 Rx Co Q-10 PO DAILY 02/16/22 History Vitamin D3 1 cap PO DAILY 02/16/22 02/16/22 History lorazepam 0.5 mg tablet (Ativan) 0.5 mg PO Q6HP PRN 02/16/22 02/16/22 History multivitamin with minerals-folic 1 tab PO DAILY 02/16/22 02/16/22 History acid 80 mcg chewable tablet Allergies Allergy/AdvReac Type Severity Reaction Status Date / Time citalopram [CITALOPRAM] Allergy Intermediate HEADACHES Verified 02/16/22 14:48 Sulfa (Sulfonamide Allergy Intermediate A BABY Verified 02/16/22 14:48 Antibiotics) [SULFA (SULFONAMIDE ANTIBIOTICS)] varenicline [VARENICLINE] Allergy Intermediate NAUSEA, Verified 02/16/22 14:48 DIZZINESS YELLOW JACKET VENOM Allergy Severe Difficulty Uncoded 02/16/22 14:48 Breathing OCEAN SPRAY Allergy Intermediate HEADACHES, Uncoded 02/16/22 14:48 COUGHING, SNEEZING, MUSCLE ACHES STRAWBERRIES Allergy Mild RASH, Uncoded 02/16/22 14:48 NAUSEA, DIZZINESS, COUGHING MILK CHOCOLATE AdvReac Mild COUGHING, Uncoded 02/16/22 14:48 SNEEZING Review of Systems Review of Systems ROS: Yes All systems reviewed with the patient and are negative except as otherw ise documented Exam Vital Signs (past 8 hours): - 02/16/22 16:30 02/16/22 16:31 02/16/22 17:00 Temperature Pulse Rate 68 61 61 Respiratory Rate Blood Pressure 141/63 H 152/69 H Pulse Oximetry 98 98 98 02/16/22 17:30 02/16/22 18:00 02/16/22 18:30 Temperature Pulse Rate 62 65 63 Respiratory Rate Blood Pressure 174/72 H 153/65 H 203/81 H Pulse Oximetry 97 98 95 02/16/22 19:49 02/16/22 20:00 02/16/22 20:30 Temperature Pulse Rate 58 L 60 57 L Respiratory Rate Blood Pressure Pulse Oximetry 99 96 96 02/16/22 21:00 02/16/22 21:30 02/16/22 22:00 Temperature Pulse Rate 56 L 59 L 58 L Respiratory Rate Blood Pressure Pulse Oximetry 98 97 96 02/16/22 23:01 Temperature 97.3 F L Pulse Rate 58 L Respiratory Rate 19 Blood Pressure 175/75 H Pulse Oximetry 99 Oxygen Delivery Method Room Air Narrative Exam Narrative: Gen: Alert, oriented, well-developed 77 y.o. female, w/facial flushing HEENT: normocephalic, atraumatic, conjunctiva clear, sclera non-icteric, oral mucosa pink and moist Neck: supple, full ROM, no JVD, trachea is midline, no bruit appreciated Resp: Lungs CTA, non-labored breathing CV: RRR, no murmur or rubs Abd: soft, non-tender, normoactive BTs Skin: no lesions or rashes, dry and intact Neuro: Alert and oriented X 4 w/no focal deficits. Speech clear and coherent. Extremities: moves all 4 extremities, is ambulatory, negative Chen?s sign Psyche: normal mood and affect. Objective Labs Result Diagrams: 02/16/22 15:03 02/16/22 15:03 Labs: Laboratory Results - last 24 hr 02/16/22 02/16/22 02/16/22 15:03 15:03 15:03 WBC 6.5 RBC 2.04 L Hgb 14.0 Hct 25.2 L MCV 123.5 H MCH 68.4 H MCHC 55.4 H RDW 13.5 Plt Count 358 Neut % (Auto) 55.3 Lymph % (Auto) 34.0 [place] % (Auto) 6.1 Eos % (Auto) 2.3 Baso % (Auto) 2.3 H Neut # (Auto) 3600 Lymph # (Auto) 2200 [place] # (Auto) 400 Eos # (Auto) 100 Baso # (Auto) 100 RBC Morphology See below Macrocytosis 2+ H PT 10.0 L INR 0.9 APTT 35 Sodium 138 Potassium 4.4 Chloride 103 Carbon Dioxide 28 BUN 12 Creatinine 0.69 Estimated GFR > 60 BUN/Creatinine Ratio 17.4 Glucose 95 Calcium 8.8 Magnesium 2.1 Total Bilirubin 0.2 AST 36 ALT 24 Alkaline Phosphatase 66 Total Creatine Kinase 36 CK-MB (CK-2) TNP CK-MB (CK-2) Rel Index TNP Troponin I < 0.012 Total Protein 7.4 Albumin 4.1 Globulin 3.3 Albumin/Globulin Ratio 1.2 SARS-CoV-2 (PCR) 02/16/22 18:43 WBC RBC Hgb Hct MCV MCH MCHC RDW Plt Count Neut % (Auto) Lymph % (Auto) [place] % (Auto) Eos % (Auto) Baso % (Auto) Neut # (Auto) Lymph # (Auto) [place] # (Auto) Eos # (Auto) Baso # (Auto) RBC Morphology Macrocytosis PT INR APTT Sodium Potassium Chloride Carbon Dioxide BUN Creatinine Estimated GFR BUN/Creatinine Ratio Glucose Calcium Magnesium Total Bilirubin AST ALT Alkaline Phosphatase Total Creatine Kinase CK-MB (CK-2) CK-MB (CK-2) Rel Index Troponin I Total Protein Albumin Globulin Albumin/Globulin Ratio SARS-CoV-2 (PCR) Negative Assessment & Plan Assessment & Plan narrative: Arianna Ryan is placed into observation for further workup and evaluation of a potential TIA versus CVA. 1. Suspected TIA v.s. Stroke * Cardiac telemetry * NIH score greater than 5 [X] no, NIH scoring and neuro checks q 4 hours * Dual antiplatelet therapy: No Yes X initiate dual antiplatelet therapy with clopidogrel 75 mg p.o. daily and aspirin 81 mg p.o. daily * MR stroke scheduled for 02/17 * Complete Echo with bubble study for 02/17 * PT/OT/ST evaluation * Recommend referral neuro-pull out operator if all her findings are negative. 2. Essential hypertension, acute with an admission bp of 190/81, present on admission * Allow for permissive hypertension of 220/110 HR 60 to allow for brain perfusion * IV labetolol if his systolic exceeds 220 or diastolic greater than 105. 3. HLD * Fasting lipid panel, pending for 0500 labs * Atorvastatin 40 mg po at bedtime Risk stratification * Fasting lipid panel pending for the morning * A1c is 5.5 %, not diabetic VTE Prophylaxis: Wells risk score 0 X Bilateral SCDs she has been started on apixaban 2.5 mg po bid Patient is placed into observation as her stay is not expected to exceed 2 midnights. FEN: IV fluids: saline lock, diet: heart healthy, labs: CBC, C/BMP, liver enzymes, Mag, PT/INR Consultants None Dispo: probable discharge to home Code status: DNR/DNI as discussed with the patient who identifies her daughter, Carolyne as her surrogate and POA. [X] I have utilized all available immediate resources to obtain, update, or review of the patient's current medications COVID-19 COVID-19 status: Negative Result date/Date tested (Pos, Neg/Pending): 02/17/22 Scores Wells' Criteria for PE Clinical signs and symptoms of DVT: No PE is #1 Dx or equally likely: No Heart rate > 100: No Immobilization at least 3 days or surg in previous 4 weeks: No History of PE or DVT: No Hemoptysis: No Malignancy w/Treatment within 6 months or palliative: No Wells' PE Score total: 0 Quality VTE Deep Vein Thrombosis/Pulmonary Embolism Present on Admission: No MIPS - Admit I confirm the patient?s Advance Care Plan is present, Code status is documented, Surrogate decision maker is in patient?s record [If Yes, STOP here]: Yes MIPS - DC The patient has current or prior documentation of left ventricular ejection fraction (LVEF) less than 40%, or moderate or severely depressed left ventricular systolic function.: No
[2022-02-17 00:37] LABS: Hemoglobin A1C% w Est Avg Glu 5.5 % (4.0-6.0)
[2022-02-17 05:27] VITALS: BP 164/75; PULSE 62; RESP 18; TEMP 36.4; O2SAT 98
[2022-02-17 06:24] LABS: BUN Creatinine Ratio 16.4 (6-22); Blood Urea Nitrogen 12 mg/dL (7-17); Calcium 8.4 mg/dL (8.4-10.2); Carbon Dioxide 30 mmol/L (22-32); Chloride 104 mmol/L (98-107); Cholesterol 260 mg/dL (140-199); Estimated Glomerular Filt Rate > 60 mL/min (>60); Glucose 100 mg/dL (80-110); HDL Cholesterol 82 mg/dL (40-60); HEMOLYSIS < 15 (0-50); LDL Cholesterol Calculated 151 mg/dL (<100); Magnesium 2.1 mg/dL (1.6-2.3); Sodium 140 mmol/L (137-145); Triglycerides 137 mg/dL (35-150)
[2022-02-17 06:53] LABS: Thyroid Stimulating Hormone 6.09 uIU/mL (0.47-4.68)
[2022-02-17 07:40] VITALS: BP 155/91; PULSE 61; RESP 18; TEMP 36.5; O2SAT 97
--- NOTE | 2022-02-17 08:00 | DI.MRI.S_ITS ---
PROCEDURE: MR HEAD/BRAIN WO CON INDICATIONS: visual field cut deficit, r/o TIA TECHNIQUE: Noncontrast axial T1 spin echo, axial T2 fast spin echo, sagittal and axial FLAIR, coronal T2 fast spin echo, axial gradient echo, axial diffusion and ADC through the brain. COMPARISON: [facility], CT, CT HEAD/BRAIN WO CON, 02/16/2022, 14:46. FINDINGS: Image quality: Excellent. CSF Spaces: Basal cisterns are patent. No extra-axial fluid collections. Ventricles are normal in size and shape. Brain: No intracranial masses or hemorrhage. Very mild scattered foci of T2/FLAIR hyperintense signal are most likely secondary to mild chronic microvascular ischemic changes. Diffusion-weighted images demonstrate no acute ischemic insult. No chronic ischemic insults. Normal intravascular flow voids are present. Skull and face: Calvarium has normal marrow signal. Orbits appear normal. Sinuses: Sinuses and mastoids are clear. IMPRESSION: No acute intracranial hemorrhage or recent infarct. Dictated by: Deric Livingston M.D. on 02/17/2022 at 9:24 Approved by: Deric Livingston M.D. on 02/17/2022 at 9:30
[2022-02-17] MEDS: APIXABAN 5 MG TABLET PO (08:17)
[2022-02-17] MEDS: ASPIRIN EC 81 MG TABLET PO (08:17)
[2022-02-17 08:18] VITALS: BP 155/91; PULSE 58
[2022-02-17] MEDS: CLOPIDOGREL 75 MG TABLET PO (08:18)
[2022-02-17] MEDS: lisinopriL 5 MG TABLET PO (08:18)
[2022-02-17 08:30] LABS: Hemoglobin 13.6 g/dL (12.0-16.0); Platelet Count 368 X10^3/uL (150-400); Red Cell Distribution Width 13.3 % (11.6-14.8); White Blood Cell Count 5.8 X10^3/uL (4.5-11.0)
[2022-02-17 08:54] LABS: Add Manual Diff / Slide Review YES
[2022-02-17 09:18] LABS: Lactate Dehydrogenase 441 U/L (313-618)
--- NOTE | 2022-02-17 09:35 | OT.IP.EVAL ---
Past Medical History (Last Updated 02/17/22 @ 02:08 by VAN Turk) Essential hypertension Generalized anxiety disorder (01/17/16) Hypertensive urgency Mixed hyperlipidemia (01/17/16) Nicotine dependence, uncomplicated (01/13/16) Surgical History (Last Reviewed 02/17/22 @ 00:18 by VAN Turk) History of carpal tunnel repair History of tonsillectomy Status post tubal ligation Occupational Therapy Inpatient Evaluation/Re-Eval M1 PT/OT-IP Prior Functional Status Start: 02/17/22 10:39 Freq: NEEDED Status: Active Protocol: Document 02/17/22 09:35 [facility] (Rec: 02/17/22 10:56 [facility] [id number]) Medical Review Prior Functional Status Communication independent Mobility and Gait Independent and does not use a device. Pt like to collect wooden canes. Activities of Daily Living and IADL's Completely independent for all ADL,IADL, and drives. Social History Household Members none Living Arrangements House Number of Floors (Floors) One Floor Number of Stairs To Enter/Railing? 1 step from the kitchen with no rails and 4 steps with bilateral narrow rails from the porch side. Home Environment Standard Height Toilet,Walk in Shower Home Equipment Straight Cane Additional Social History Comment Pt has a boyfriend that can be there to assist her as needed . M2 OT-IP Current Condition Start: 02/17/22 10:39 Freq: Status: Active Protocol: Document 02/17/22 09:35 [facility] (Rec: 02/17/22 10:56 [facility] [id number]) Occupational Therapy Current Condition Current Condition Evaluation Date 02/17/22 Treatment Diagnosis TIA Diagnosis Onset Date 02/16/22 M3 OT- IP Subjective and Pain Start: 02/17/22 10:39 Freq: Status: Active Protocol: Document 02/17/22 09:35 [facility] (Rec: 02/17/22 10:56 [facility] [id number]) OT- Subjective Occupational Therapy Visit Type Type Initial Evaluation Visit Start Time 09:35 Visit Stop Time 10:17 Total Visit Minutes 42 Occupational Therapy Visit Comments Patient Comments Pt agree to work with OT, pt's boyfriend, Sukhi also present in the room. Patient/Caregiver Goals To go home. OT Pain Assessment Pain When Pain Assessed At Rest Pain Present Pain Present Pain Reported Location Head Description Aching M4 OT- IP ADL's Start: 02/17/22 10:39 Freq: Status: Active Protocol: Document 02/17/22 09:35 [facility] (Rec: 02/17/22 10:56 [facility] [id number]) OT [id number] Comments OT Self-Feeding Comments Not at meal time. OT ADL-Grooming General Evaluation Grooming Ability Independent OT ADL-Oral Care General Eval Oral Care Ability Independent OT ADL-Dressing General Eval Lower Body Dressing Ability Independent OT ADL-Toileting General Evaluation Toileting Ability Independent OT ADL-Bathing Comments OT Bathing Comments NOt performed. Pt open to getting a shower chair for home use if needed. M5 OT- IP IADL's Start: 02/17/22 10:39 Freq: Status: Active Protocol: Document 02/17/22 09:35 [facility] (Rec: 02/17/22 10:56 [facility] [id number]) OT-Instrumental Activities of Daily Living Home Safety Awareness Awareness of Need for Assistance at Home Good Awareness Ability to Problem Solve Emergency Able to Problem Solve Situations Home Safety Comments Pt's boyfriend to stay with her to assist as needed. Medication Management Medication Management No Deficits Identified Driving Driving Comments Pt a bit tired and would be beneficial for her boyfriend to drive initially and to provide supervision when pt decided to drive initially. M6 OT- IP Functional Cognition Start: 02/17/22 10:39 Freq: Status: Active Protocol: Document 02/17/22 09:35 [facility] (Rec: 02/17/22 10:56 [facility] [id number]) Cognitive Factors Limiting Selfcare Function Cognitive Ability Level of Alertness Alert Patient Orientation Name,Age,Birthday,Month,Date, Year,Day of Week,Place, Situation Attention Span Ability Capable of Focused Attention, Capable of Sustained Attention Ability to Follow Commands Able to Follow One Step Commands Memory Description Short Term Impaired Safety Awareness No Deficits Noted Problem Solving Ability Needs Assist to Identify Solutions Executive Function Ability Unable to Remember Details Cognitive Tests SLUMS Per POSTAL SERVICE CLERK pt scored 24/30 on the SLUMS. Cognitive Comments Cognitive Assessment Comments Pt scored 85 seconds with one cue to recall the directions , her score implies mild impairments for visual attention, speed of processing , executive functioning, task switching, and mental flexibility. Pt feels that she did not sleep well only 2 hours or so and therefore feels that she is not thinking as clearly today. OT- Vision and Hearing OT- Hearing Assessment OT- Hearing Assessment WFL OT- Vision Assessment Visual Acuity WFL Visual Attentiveness WFL Occular Pursuits WFL Visual Convergence WFL Visual Pierce WFL Diplopia Absent M7 OT- IP Mobility and Balance Start: 02/17/22 10:39 Freq: Status: Active Protocol: Document 02/17/22 09:35 [facility] (Rec: 02/17/22 10:56 [facility] [id number]) OT- Bed Mobility Assessment Rolling Level of Assistance Independent Supine to Sit Supine to Sit Assist Independent Sit to Supine Sit to Supine Assist Independent OT-Transfer Assessment Sit to and From Stand Sit to and from Stand Independent Transfers Transfer Ability Independent Technique Transfer Destination Bed Transfer Technique Stand Step Pivot Devices Transfer Assistive Devices None Comments Mobility Comments Pt is independent in the room for her mobility needs. Pt also able to crawl into bed via her knee up on the bed and turning around as she does so at home with good safety. OT- Balance Assessment Sitting Balance and Reactions Static Sitting Balance Ability Normal Dynamic Sitting Balance Ability Normal Standing Balance and Reactions Static Standing Balance Ability Normal Dynamic Standing Balance Ability Good M8 OT- IP Objective Assessments Start: 02/17/22 10:39 Freq: Status: Active Protocol: Document 02/17/22 09:35 [facility] (Rec: 02/17/22 10:56 [facility] [id number]) OT Gross Range of Motion Upper Extremity Range of Motion Assessment Within Functional Limits OT- Coordination Assessment Upper Extremity Finger to Nose Test Within Functional Limits Comments Coordination Comments R hand 24.5sec for 9 hole peg test and Lhand 26.5sec. Based on age percentiles pt performed a little better with her left hand, pt is right handed. OT-Muscle Tone Assessment Muscle Tone WNL Yes M9 OT- IP Assessment and Plan Start: 02/17/22 10:39 Freq: Status: Active Protocol: Document 02/17/22 09:35 [facility] (Rec: 02/17/22 10:56 [facility] [id number]) OT Summary Assessment and Plan Potential Rehabilitation Potential Good Analytic Complexity at Evaluation Low Summary OT Impairments Functional Cognition Progress Towards Goals Progressing Toward Goals Assessment Summary Pt low complexity and main barrier is a bit tired from not sleeping well and needing increased time to think and problem solve at this time. Pt states usually has to write things down often for herself prior. Pt looking to go home with her boyfriend when medically stable. Pt also states that her eyes are tired but no visual deficits noted on OT eval. Goals Dressing Goal Independent Bathing Goal Independent Days to Meet Goals 1 Frequency of Treatment Frequency Of Treatment Once a Day Treatment Plan OT Treatment Plan ADL Training,Functional Cognition Training,Functional Mobility,Patient/Family Education,Discharge Planning Other Treatment Recommendations and Next shower if still here Treatment Focus Discharge Recommendations OT Discharge Recommendations Home with Assistance Home Equipment Needs shower chair Transportation Needs at Discharge Private Vehicle
[2022-02-17 09:48] LABS: Reticulocyte Count, Percent 1.1 % (1.1-2.6)
[2022-02-17 09:54] LABS: Neutrophils Absolute Manual 3248 /uL (3000-5900); Total Cells Counted 100
[2022-02-17 09:58] LABS: RBC Morphology Normal Morphology
--- NOTE | 2022-02-17 10:28 | PT.IIE ---
Surgical History (Last Reviewed 02/17/22 @ 00:18 by VAN Turk) History of carpal tunnel repair History of tonsillectomy Status post tubal ligation Medical History (Last Updated 02/17/22 @ 02:08 by VAN Turk) Essential hypertension Generalized anxiety disorder (01/17/16) Hypertensive urgency Mixed hyperlipidemia (01/17/16) Nicotine dependence, uncomplicated (01/13/16) Physical Therapy Inpatient Evaluation/Re-Eval M1 PT/OT-IP Prior Functional Status Start: 02/17/22 11:44 Freq: NEEDED Status: Active Protocol: Document 02/17/22 10:28 AB (Rec: 02/17/22 11:58 AB [id number]) Medical Review Prior Functional Status Medical History Reviewed Yes Communication able to make needs known Mobility and Gait pt stated that she is independent with all mobilities and ambulation without AD Social History Household Members none Living Arrangements House Number of Floors (Floors) One Floor Number of Stairs To Enter/Railing? 1 step to enter from the garage 4 steps B rails from the front Home Environment Standard Height Toilet,Walk in Shower Additional Social History Comment pt lives at [place] alone but has her daughter and neighbors that live close by to assist her if needed M2 PT-IP Current Condition Start: 02/17/22 11:44 Freq: NEEDED Status: Active Protocol: Document 02/17/22 10:28 AB (Rec: 02/17/22 11:58 AB [id number]) Physical Therapy Current Condition Current Condition Evaluation Date 02/17/22 Treatment Diagnosis TIA; difficulty in walking Onset Date 02/16/22 M3 PT-IP Subjective Start: 02/17/22 11:44 Freq: NEEDED Status: Active Protocol: Document 02/17/22 10:28 AB (Rec: 02/17/22 11:58 AB [id number]) Subjective Physical Therapy Visit Type Type Initial Evaluation Visit Start Time 10:28 Visit Stop Time 10:47 Total Visit Minutes 19 Number of MEDICAL CASE WORKER Visits 0 Physical Therapy Visit Comments Patient Comments agreeable to do PT Therapy Pain Assessment Pain Present Pain Present Denied Pain M4 PT-IP Mobility and Gait Start: 02/17/22 11:44 Freq: NEEDED Status: Active Protocol: Document 02/17/22 10:28 AB (Rec: 02/17/22 11:58 AB [id number]) PT-Bed Mobility Assessment Supine to Sit Supine to Sit Independent Sit to Supine Sit to Supine Independent PT-Transfer Assessment Sit to and From Stand Sit to and from Stand Independent Equipment Transfer Assistive Device None Orthotic/Prosthetic Devices or Brace: No Transfers Transfer Destination Bed Transfer Technique ambulated Transfer Ability Level of Assist Independent Comments Mobility Comments checked on pt and found sitting by window bench and walked to the bed without AD. pt agreed to do PT eval. BP: 155/70. pt without c/o pain or dizziness. demonstrated bed mobility and transfers independent. pt ambulated in the hallway without AD independent ~ 125 ft. No LOB. demonstrates increase LE external rotation. completed up/down steps using L rail on first attempt SBA and then without AD SBA on 2nd set. pt ambulated back to her room independent wiht AD. pt agreed that no PT intervention needed at this time. Gait Assessment Gait Gait Assistance Required: Independent Distance (Feet) 125 Able to Maintain Weight Bearing Status Yes During Gait Assistive Devices Assistive Device None,Gait Belt Orthotic/Prosthetic Devices or Brace: No Stair Climbing Assessment Evaluation Level of Assist On Stairs Standby Assistance Devices Stair Climbing Assistive Devices None,Left Railing Technique/Endurance Stair Climbing Direction Ascend and Descend Stair Climbing Technique Step Over Step Number of Steps Climbed 3 Query Text: Stair Climbing Set # Repetitions (reps) 2 PT-Balance Assessment Sitting Balance and Reactions Static Sitting Balance Ability Normal Dynamic Sitting Balance Ability Normal Standing Balance and Reactions Static Standing Balance Ability Normal Dynamic Standing Balance Ability Good Device Used without AD M5 PT-IP Objective Assessments Start: 02/17/22 11:44 Freq: NEEDED Status: Active Protocol: Document 02/17/22 10:28 AB (Rec: 02/17/22 11:58 AB [id number]) Orientation Orientation/Cognition Level of Alertness Alert Orientation Name,Age,Birthday,Month,Date, Year,Day of Week,Place, Situation Language Function Ability No Deficits Noted Safety Awareness Understands Safety Issues Memory Description No Deficits Noted Gross Range of Motion Lower Extremity ROM Assessment Within Functional Limits Strength Comments Strength Comments LLE: 4/5 RLE: 4-/5 Coordination Assessment Gross Coordination Gross Coordination WNL Sensation Assessment Sensation Gross Sensation WNL Muscle Tone Muscle Tone WNL Yes M7 PT-IP Assessment and Plan Start: 02/17/22 11:44 Freq: NEEDED Status: Active Protocol: Document 02/17/22 10:28 AB (Rec: 02/17/22 11:58 AB [id number]) PT Summary Assessment and Plan Potential Rehabilitation Potential Good Status of Condition at Evaluation Stable Summary Progress Towards Goals Safe For Discharge Assessment Summary PT eval completed. pt is independent with bed mobility, transfers and ambulation without AD. pt may go home when medically stable. No furthre PT eval indicated at this time. Frequency of Treatment Frequency Of Treatment Discharge Recommendations To Nursing Amount of Assist Needed Independent Discharge Recommendations PT Discharge Recommendations Home Transportation Needs at Discharge Private Vehicle
--- NOTE | 2022-02-17 10:58 | PM.DS.1 ---
History of Present Illness History of Present Illness Chief complaint: Visual field cut r. eye, TIA? Narrative: Per admitting provider: Bella Ryan is a 77 y.o. female resident from [place] with hypertension, hyperlipidemia and anxiety and daily smoker presented at the request of her electron microscopist Dr. Hernandez, for stroke evaluation.? Patient had experienced visual field changes in her right I have over the past 5 weeks occurring in the right eye only.? She has experience ?a blackness? in the upper 2/3rds of her horizontal field of vision and then the subsequent events the visual deficit was more of a parish color.? She was able to get in to see her electron microscopist who determined that he felt that this was not an ophthalmological problem and that she needed to be further assessed for TIA him insisted upon her presenting to the emergency department after the office visit.? She denies a history of injury to her head, neck, falls, headaches, speech difficulties or difficulty swallowing, numbness tingling, changes in bladder or bowel control or changes in ambulation.? She did endorse having very mild chest pain and dizziness while she was in the emergency department which have since resolved.? She had a NIH score determined to be 0.? She states that her regular provider did note she had a right-sided bruit that comes and goes. Chest x-ray, head CT, and head neck CTA were negative for any acute findings.? Patient is afebrile, presenting blood pressure was 190/81 and is currently 170/75, heart rate is 58, respiratory rate 19, oxygen saturation of 99% on room air she weighs 48 kg with a BMI of 20.? CBC is unremarkable, though noted macrocytosis, chemistries and liver enzymes are within normal limits troponin was 0.012 A1c is 5.5 and lipid panel is pending for the morning. Discharge Providers Provider Date of admission: 02/16/22 22:39 Discharge Date: 02/17/22 Primary care physician: VAN Glover Consults: 02/16/22 23:32 Consult to Occupational Therapy Evaluate & Treat Comment: Physician Instructions: Evaluate and treat Consult to Physical Therapy Evaluate & Treat Comment: Physician Instructions: Evaluate and Treat Consult to Speech Therapy Evaluate & Treat Comment: Physician Instructions: Evaluate and treat Discharge provider: Monroe Lopez MD Summary Hospital Course Discharge Diagnosis: 1. Amaurosis fugax 2. 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 HTN 4. HL 5. Active smoker Hospital Course: Ms. Ryan was admitted with transient monocular vision loss that occurred multiple times in the weeks prior to presentation. She had previously seen ophtho. Her symptoms had resolved by the time she was admitted. CT head, ct angio head/neck, ECHO, and MRI all were normal and showed no acute process. ESR was only mildly elevated in the 30s, she had no headache. She was treated as a TIA and started on aspirin and statin. She was noted to have macrocytosis, along with elevated MCHC and MCH, normal hgb and low hct on her red cell indices. She has stated he has history of low b12, but has been treated for years, and her red cell indices have been abnormal for years. TSH was only mildly elevated. LDH and bilirubin normal, inconsistent with hemolysis. Her red cells were noted to aggluinate, and she did note she had cold symtpoms, with reynaud's and also had chronic livedo reticularis rash on extremities. 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 Exam Vital Signs (past 8 hours): Oxygen Delivery Method Room Air Oxygen Flow Rate 0 Narrative Exam Narrative: GEN: No acute distress CV: regular rate and rhythm PULM: clear bilaterally Objective Labs Result Diagrams: 02/17/22 08:25 02/17/22 05:10 Labs: Laboratory Results - last 24 hr 02/16/22 02/17/22 02/17/22 15:03 05:10 05:10 WBC RBC Hgb Hct MCV MCH MCHC RDW Plt Count Neut % (Auto) Lymph % (Auto) Beauregard % (Auto) Eos % (Auto) Baso % (Auto) Lymph # (Auto) Beauregard # (Auto) Baso # (Auto) Total Counted Seg Neutrophils % Lymphocytes % (Manual) Atypical Lymphs % Monocytes % (Manual) Eosinophils % (Manual) Basophils % (Manual) Neutrophils # (Manual) RBC Morphology ESR Percent Retic Sodium 140 Potassium 4.0 Chloride 104 Carbon Dioxide 30 BUN 12 Creatinine 0.73 Estimated GFR > 60 BUN/Creatinine Ratio 16.4 Glucose 100 Hemoglobin A1c 5.5 Calcium 8.4 Magnesium 2.1 Lactate Dehydrogenase Triglycerides 137 Cholesterol 260 H LDL Cholesterol, Calc 151 H HDL Cholesterol 82 H TSH 6.09 H 02/17/22 02/17/22 02/17/22 05:10 05:10 05:10 WBC RBC Hgb Hct MCV MCH MCHC RDW Plt Count Neut % (Auto) Lymph % (Auto) Beauregard % (Auto) Eos % (Auto) Baso % (Auto) Lymph # (Auto) Bea[place]gard # (Auto) Baso # (Auto) Total Counted Seg Neutrophils % Lymphocytes % (Manual) Atypical Lymphs % Monocytes % (Manual) Eosinophils % (Manual) Basophils % (Manual) Neutrophils # (Manual) RBC Morphology ESR 36 H Percent Retic 1.1 Sodium Potassium Chloride Carbon Dioxide BUN Creatinine Estimated GFR BUN/Creatinine Ratio Glucose Hemoglobin A1c Calcium Magnesium Lactate Dehydrogenase 441 Triglycerides Cholesterol LDL Cholesterol, Calc HDL Cholesterol TSH 02/17/22 08:25 WBC 5.8 RBC TNP Hgb 13.6 Hct TNP MCV TNP MCH TNP MCHC TNP RDW 13.3 Plt Count 368 Neut % (Auto) Not Reportable Lymph % (Auto) Not Reportable Beauregard % (Auto) Not Reportable Eos % (Auto) Not Reportable Baso % (Auto) Not Reportable Lymph # (Auto) Not Reportable Bea[place]gard # (Auto) Not Reportable Baso # (Auto) Not Reportable Total Counted 100 Seg Neutrophils % 56.0 Lymphocytes % (Manual) 34.0 Atypical Lymphs % 1.0 H Monocytes % (Manual) 7.0 Eosinophils % (Manual) 1.0 L Basophils % (Manual) 1.0 Neutrophils # (Manual) 3248 RBC Morphology Normal morphology ESR Percent Retic Sodium Potassium Chloride Carbon Dioxide BUN Creatinine Estimated GFR BUN/Creatinine Ratio Glucose Hemoglobin A1c Calcium Magnesium Lactate Dehydrogenase Triglycerides Cholesterol LDL Cholesterol, Calc HDL Cholesterol TSH [facility] Medical History (Updated 02/17/22 @ 02:08 by VAN Turk) Essential hypertension Generalized anxiety disorder (01/17/16) Hypertensive urgency Mixed hyperlipidemia (01/17/16) Nicotine dependence, uncomplicated (01/13/16) Surgical History History of carpal tunnel repair History of tonsillectomy Status post tubal ligation Family History Brother Age: 69 Heart attack Hypertension High cholesterol Child Age: 54 Hypertension High cholesterol Child Age: 51 Hypertension High cholesterol Child Age: 50 Hypertension Hypothyroid Child Age: 48 Hypertension Father Cancer Hypertension Mother Heart disease Mental health problem Stroke Hypothyroid Grandfather Heart disease Hypertension High cholesterol Grandmother Heart disease Sister Age: 79 Heart disease Hypertension High cholesterol Sister Hypertension High cholesterol Social History household members: none Smoking Status: Current every day smoker alcohol intake: current Discharge Plan Discharge Plan Patient Disposition: Home Provider Discharge Comment: Ms. Ryan came in with vision changes. They improved in the hospital. MRI was negative for stroke. She may have had a TIA (transient ischemic attack), she was started on aspirin, and her cholesterol medicine was changed. She had somewhat abnormal appearing red blood cells, she should follow up with hematology to evaluate further. Discharge orders & Medications Prescriptions: New aspirin 81 mg Tablet,Delayed Release (Dr/Ec) 81 mg PO DAILY Qty: 30 0RF pravastatin 40 mg tablet 40 mg PO BEDTIME Qty: 30 0RF Continued [bee pollen] 1 dose PO DAILY Qty: 0 0RF cyanocobalamin (vitamin B-12) 1,000 MCG/1 ML solution 1,000 mcg IM SEE INSTRUCTIONS Qty: 10 1RF vitamin E 400 UNIT capsule 400 unit PO QDAY Qty: 0 0RF lisinopril 5 MG tablet 5 mg PO BID Qty: 180 0RF lorazepam [Ativan] 0.5 MG tablet 0.5 mg PO Q6HP PRN (Reason: Anxiety) 0RF multivit with min-folic acid 80 mcg Tablet,Chewable 1 tab PO DAILY 0RF Co Q-10 PO DAILY 0RF Vitamin D3 1 cap PO DAILY 0RF Discontinued simvastatin 10 MG tablet 10 mg PO HS Qty: 90 1RF Follow up/Referrals: Brandi Waterman ARNP [Primary Care Provider] - Genoveva Godinez MD [Physician] - (patient with high mcv, high mchc, cold sensitivity, ? if agglutinin disease) Diet/Activity/Treatments Diet: Regular Discharge Data Primary Care Provider: Brandi Waterman Attending Provider: Fina Hale VTE Deep Vein Thrombosis/Pulmonary Embolism Present on Admission: No
[2022-02-17 11:05] LABS: Erythrocyte Sedimentation Rate 36 MM/HR (0-20)
--- NOTE | 2022-02-17 11:12 | CM.DANOTE ---
Patient is a 77 yo female who was admitted on 02/16/22 for Visual Eye problems. Pt has [facility] and [facility] for insurance and her PCP is Brandi Waterman. EMR was reviewed. Per MD, pt with anxiety and admitted for TIA vs CVA r/o and pending Echo and PT/OT/ST may be stable for d/c home today. Per PT/OT/ST, pt ambulated well and participated in evals and recommending home with assist and no further needs at this time. SW met bedside with pt and Sig Other and explained role and pt confirms that she lives on [address] alone and is active and independent at baseline and has local supportive Sig Other. Pt drives and does not use DME for ambulation and denies any hx of HH or SNF. Pt is hopeful for d/c home today via Sig Other POV to catch the ferry back to [place] and does not anticipate any needs. Plan: SW to follow for likely d/c home via Sig Other POV back to [place] with outpt follow up and any further identified discharge planning needs. DAISY Orosco Discharge Planning/Care Management CM Discharge Assessment Start: 02/17/22 11:09 Freq: Status: Active Protocol: Document 02/17/22 11:09 BF (Rec: 02/17/22 11:11 [id number]) Discharge Planning Assessment Assigned Carroter DAISY Mauro DPOA/Assigned Designee Name Suhailkristy Barfield Contact Information [phone] Advance Directives? No Advance Directives on File No History Provided By Patient,Significant Other, Medical Record Has Patient been admitted in last 30 No days? Prior Living Arrangements House Household Members none Comment supportive local Sig Other Type of transporation used prior to Drives own vehicle admit Independent with ADL's Yes Is patient alert and oriented? Yes Caregiver for Another No Discharge Plan Home Transportation Arrangement Sig Other bedside and can transport Referrals Initiated None needed Whiteboard Updated in Patient Room with Yes name and ext. # of Carroter Review Status In Process Please Provide Date Initial DC 02/17/22 Assessment Was Performed Next Review Type Continued Stay Review
[2022-02-17 12:00] VITALS: BP 129/67; PULSE 60; RESP 18; TEMP 36.2; O2SAT 97
--- NOTE | 2022-02-17 14:02 | PC.NURSE ---
Pt is AxOx4, independent and cooperative. VSS, pt denies pain. MRI showed no intracranial hemorrhage, Head and Neck CT normal. Pt's states her vision seems ok. Thus, pt is stable and d/c to her home with her s/o. D/c instructions given to pt including stroke symptoms and f/u with her PCP and shuttle operator. No other changes.
--- NOTE | 2022-02-17 14:49 | ST.IPIE ---
Visit Care Team Role Provider Type VAN Glover Primary Care Provider Non-Staff Specialty: Medical Address: [address] [place] [address], [id number] Email: Alf Ma DO Emergency Provider Physician Specialty: Emergency Medicine Address: [address] [place] [address], [id number] Email: [email or web address] Turk Admit Provider Physician Attending Provider Specialty: Internal Medicine Address: [address] [place] [address], [address] Email: [email or web address] Past Medical History (Last Updated 02/17/22 @ 02:08 by VAN Turk) Essential hypertension (Medical) Generalized anxiety disorder (Medical 01/17/16) Hypertensive urgency (Medical) Mixed hyperlipidemia (Medical 01/17/16) Nicotine dependence, uncomplicated (Medical 01/13/16) ST IP Initial Evaluation Report CUT OUT MARKER Adult Cognitive Linguistic Eval Start: 02/17/22 10:20 Freq: Status: Discharge Protocol: Document 02/17/22 10:21 EK (Rec: 02/17/22 10:27 EK [id number]) Adult Cognitive Linguistic Evaluation Session Time Visit Start Time 09:00 Visit Stop Time 09:25 Total Visit Minutes 25 Visit Information Visit Number 1 Referral Referring Provider Fina Hale Reason for Referral Suspected CVA Setting Assessment Location Acute Care Visit Type Note Type Initial evaluation Next Note Type Next Note Type Treatment Note Patient Information Identification Type Name,Wristband Patient History Per HP: ?Pt is a 77 y.o. female resident from [place] with hypertension, hyperlipidemia and anxiety and daily smoker presented at the request of her product representative Dr. Hernandez, for stroke evaluation. Pt had experienced visual field changes in her right eye have over the past 5 weeks occurring in the right eye only. She has experience ?a blackness? in the upper 2/3rds of her horizontal field of vision and then the subsequent events the visual deficit was more of a parish color. She denies a history of injury to her head, neck, falls, headaches, speech difficulties or difficulty swallowing, numbness, or tingling. She did endorse having very mild chest pain and dizziness while she was in the emergency department which have since resolved. She had a NIH score determined to be 0?. MRI taken from this morning on 02/17 stated: ?no acute intracranial hemorrhage or recent infarct?. Hearing Hearing Level Impaired Auditory History Pt reported she has difficulty hearing but does not have hearing aids. Previous Therapy Previous Speech-Language Therapy Yes History of Therapy Received speech therapy as a child for articulation and stuttering. Subjective Patient Report Pt was awake, upright, and oriented upon CUT OUT MARKER and CUT OUT MARKER chemical engineering intern arrival. Pt reported that she occasionally experiences WFD and slight difficulties with her memory that may be due to aging. When asked if these memory issues are new, pt stated that she wasn't sure. Mental Status Alert,Responsive,Cooperative Assessment Oral Motor Examination Completed No Results Swallow screen was performed with thin liquid and regular texture, pt's swallow appeared to be WNL. No obvious signs of aspiration or penetration were noted and pt denied having difficulties with swallowing. 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 Pt demonstrated difficulty remembering 5 objects (scored 2/5) and remembering the setting of the short story read to her, stating: I don't think that was mentioned. Of note, while pt did receive full credit for clock drawing, the clock hands did not originate at the center of the clock and pt stated that this task was more difficult than she anticipated. When drawing the clock hands, the pt initially made a mistake but self-corrected. Pt expressed that she has been concerned about her memory changes and isn't sure if these changes are related to normal aging or if they could be a result of her suspected TIA. Findings/Results Language Function Within normal limits Cognitive Function Mildly impaired Findings Pt's language skills appeared to be WNL in the context of ego-centric conversation. Pt scored as mildly impaired on the UMS Examination and may benefit from further testing in the outpatient setting to assess memory deficits and treat as needed. Recommend in- person therapy if available in her community or tele-therapy . Pt acknowledged that untreated hearing loss may be a contributing factor to her cognitive difficulty. Cognitive Communication Deficits Self-awareness of Cognitive- Predictive awareness (able to Communication Deficits predict problem; impact of impairments) Concomitant Factors Concomitant Factors Hearing loss Impact on Functioning Comment WFD in conversation and concern of worsening cognitive communication skills Prognosis Prognosis Good Based on Cognitive status,Family support Plan of Care Speech-Language Treatment Yes Frequency Follow Up x1 over hospital stay Patient/Caregiver Education Described results of evaluation,Patient expressed understanding of evaluation, Patient expressed agreement with goals and treatment plans ,Patient requires further education/training Short Term Goals 1. Outpatient therapy to further assess skills of external and internal memory strategies. Paleology Professor Goals 1. Patient will demonstrate cognitive abilities WNL for age. Discharge Recommendations Home CUT OUT MARKER Clinical Instructor Line Start: 02/17/22 14:28 Freq: Status: Active Protocol: Document 02/17/22 14:28 BARBARA (Rec: 02/17/22 14:29 BARBARA [id number]) Clinical Instructor Signature Clinical Instructor Clinical Instructor Yes
== END 2022-02-17 14:05 | disposition home or self-care (01) ==
LOC: ED 20:35 → AC 22:40
PROVIDERS: Emergency Medicine; Internal Medicine; Admitting Provider Nurse Practitioner Family; Emergency Provider Emergency Medicine; PCP Nurse Practitioner Family; Visit Provider Nurse Practitioner Family
DX: G45.3 Amaurosis fugax (principal); D75.89 Other specified diseases of blood and blood-forming organs; I10 Essential (primary) hypertension; F17.210 Nicotine dependence, cigarettes, uncomplicated; R29.700 NIHSS score 0; E78.5 Hyperlipidemia, unspecified; F41.9 Anxiety disorder, unspecified; Z20.822 Contact with and (suspected) exposure to COVID-19
CPT/HCPCS: 36415; 70450; 70496; 70498; 70551; 71045; 80048; 80053; 80061; 82550; 83036; 83615; 83735; 84443; 84484; 85007; 85025; 85045; 85610; 85651; 85730; 87635; 92523; 93005; 93010; 93306; 97161; 97165; 99285; C9803; G0378; Q9967

== ENCOUNTER → 2023-11-24 | Outpatient (CLI) | payer MEDICARE, MEDICAID, SELFPAY ==
--- NOTE | 2023-11-24 12:44 | DI.RAD.S_ITS ---
Bone Density Report Name: NAVYA POLLOCK V Age: 78 Sex: Female Ethnicity: White Date of : 1945 Indication: osteopenia; Referring Provider: CHEIKH JAMESON Study: Bone densitometry was performed. Exam Date: November 24, 2023 Accession number: [id number] Bone Density: Region BMD T-score Z-score Classification AP Spine(L1-L4) 0.963 -0.8 1.7 Normal Femoral Neck (Left) 0.591 -2.3 -0.2 Osteopenia Total Hip (Left) 0.789 -1.3 0.6 Osteopenia Femoral Neck (Right) 0.593 -2.3 -0.1 Osteopenia Total Hip (Right) 0.742 -1.6 0.2 Osteopenia Total Hip Mean 0.765 -1.5 0.4 Osteopenia World Health Organization criteria for BMD impression classify patients as: Normal (T-score at or above -1.0), Osteopenia (T-score between -1.0 and -2.5), or Osteoporosis (T-score at or below -2.5). 10-year Fracture Risk(1): Major Osteoporotic Fracture 15% Hip Fracture 6.7% Reported Risk Factors: [place] (), Neck BMD=0.591, BMI=20.5, smoking (1) FRAX(R) Version 3.08. Fracture probability calculated for an untreated patient. Fracture probability may be lower if the patient has received treatment. Previous Exams: -- Region Exam Age BMD T-score BMD Change BMD Change Date g/cm2 vs Baseline vs Previous -- AP Spine (L1-L4) 11/24/2023 78 0.963 -0.8 0.073 (8.3%)# 0.031 (3.3%)# 06/23/2021 76 0.932 -1.0 0.042 (4.8%)* 0.018 (2.0%) 04/16/2020 75 0.914 -1.2 0.024 (2.7%)* 0.024 (2.7%)* 03/18/2017 72 0.889 -1.4 Total Hip(Left) 11/24/2023 78 0.789 -1.3 -0.020 (-2.5%)# 0.005 (0.7%)# 06/23/2021 76 0.783 -1.3 -0.026 (-3.2%) 0.007 (0.9%) 04/16/2020 75 0.776 -1.4 -0.032 (-4.0%)* -0.032 (-4.0%)* 03/18/2017 72 0.809 -1.1 Total Hip(Right) 11/24/2023 78 0.742 -1.6 -0.033 (-4.2%)# -0.003 (-0.4%)# 06/23/2021 76 0.745 -1.6 -0.030 (-3.8%)* 0.003 (0.4%) 04/16/2020 75 0.742 -1.6 -0.033 (-4.3%)* -0.033 (-4.3%)* 03/18/2017 72 0.775 -1.4 -- *Denotes significance at 95% confidence level, LSC for AP Spine = 0.022 g/cm2, LSC for Total Hip = 0.027 g/cm2 # Denotes dissimilar scan types or analysis methods Impression: The patient has low bone mass, based on the Left Femoral Neck T-score. The patient has an estimated ten-year risk of hip fracture of 6.7% and an estimated ten-year risk of major fracture of 15%, based on the WHO FRAX algorithm. The patient has risk factors, including: smoking. No significant bone loss was observed. Discussion: BONE DENSITY IS LOW AT ONE OR MORE SKELETAL SITES. THE PATIENT'S BMD AND CLINICAL RISK FACTORS CONTRIBUTE TO THIS PATIENT'S INCREASED RISK OF FRACTURE. This patient's lowest T-score is low at one or more skeletal sites. It meets the World Health Organization's (WHO) criteria for low bone mass (T-score between -1.0 and -2.5). The patient's 10-year risk of hip fracture as calculated by FRAX exceeds the threshold where pharmacological therapy is recommended by the National Osteoporosis Foundation (NOF). However, all treatment decisions require clinical judgment and consideration of individual patient factors, including patient preferences, comorbidities, previous drug use, risk factors not captured in the FRAX model (e.g., frailty, falls, vitamin D deficiency, increased bone turnover, interval significant decline in bone density) and possible under or overestimation of fracture risk by FRAX. The patient should follow a healthful lifestyle (good nutrition with adequate calcium and vitamin D, and appropriate weight-bearing exercise). Follow-Up: Consider a repeat BMD and Vertebral Fracture Assessment (VFA) exam in 2 years or sooner if medically necessary, to reassess this patient's status. Reported by: AHMET LEIVA MD on 11/24/2023 1:02:00 PM.
== END ==
LOC: RAD 12:43
PROVIDERS: PCP Nurse Practitioner Family; Referring Provider Physician Assistant; Visit Provider Physician Assistant
DX: M85.852 Other specified disorders of bone density and structure, left thigh (principal); M85.851 Other specified disorders of bone density and structure, right thigh
CPT/HCPCS: 77080